=== PATIENT | male | born 1950 | race Two or more races ===

== ENCOUNTER 2018-11-17 09:12 | Outpatient (CLI) | payer OTHER ==
[~2018-11-17 09:12] MED LIST: COZAAR50 MG; METFORMIN HCL500 MG
== END 2018-11-17 09:18 | disposition home or self-care (01) ==
LOC: RAD 501 09:12
DX: N20.1 Calculus of ureter (principal)

== ENCOUNTER 2022-01-11 10:20 | Outpatient (CLI) | payer OTHER | END 2022-01-11 10:38 | disposition home or self-care (01) | LOC: LAB 10:20 | PROVIDERS: ATTEND Urology | DX: I11.9 Hypertensive heart disease without heart failure (principal) ==

== ENCOUNTER 2022-01-22 11:37 | Outpatient (CLI) | payer OTHER | END 2022-01-22 13:38 | disposition home or self-care (01) | LOC: LAB 11:37 → EKG 11:37 → LAB 13:38 | PROVIDERS: ATTEND Urology | DX: I11.9 Hypertensive heart disease without heart failure (principal) ==

== ENCOUNTER 2022-01-30 05:49 | Day surgery (SDC) | payer OTHER ==
[~2022-01-30 05:49] MED LIST changes: +ATACAND HCT 321 EACH PO; +GLUMETZA1000 MG PO; +LIPITOR20 MG PO; +TRICOR145 MG PO
== END 2022-01-30 16:05 | disposition home or self-care (01) ==
LOC: CIR.AMB 05:49
PROVIDERS: ATTEND Urology
DX: A63.0 Anogenital (venereal) warts (principal); N47.1 Phimosis; N47.7 Other inflammatory diseases of prepuce; I10 Essential (primary) hypertension; E78.5 Hyperlipidemia, unspecified; Z79.84 Long term (current) use of oral hypoglycemic drugs; E11.9 Type 2 diabetes mellitus without complications; Z20.822 Contact with and (suspected) exposure to COVID-19